=== PATIENT | male | born 1940 | race Caucasian/White ===

== ENCOUNTER → 2016-07-09 | Outpatient (CLI) | payer OTHER ==
[~2016-07-09] MED LIST: ANTIVERT PO; B-COMPLEX1 TAB; BLOOD PRESSURE MED; DIAZEPAM PO; PHENERGAN25 MG PO; VITAMIN C500 MG; WATER PILL
--- NOTE | ~2016-07-09 | US84 ---
[id number] [facility] [address]. [place], [place] [address] [id number] O MR#: [id number] Acc #: [id number] NAME: ANGEL CULP : 1940 SEX: M STUDY DATE/TIME: 07/09/2016 13:02 UNIT: [facility] ROOM: STUDY DESCRIPTION: US LE Veins Complete Guilherme Stdy Attending Physician: Justin Calvillo M.D. Referring Physician: Justin Calvillo M.D. Ordering Physician: Justin Calvillo M.D. Primary Care Physician: Justin Calvillo M.D. MEDICAL IMAGING REPORT This report is preliminary unless electronic signature is present EXAM Bilateral lower extremity venous duplex ultrasound 07/09/2016 HISTORY 75-year-old male with bilateral lower extremity swelling for 2 years. COMPARISON None. FINDINGS Real-time valencia-scale, color Doppler, and spectral Doppler analysis of the bilateral lower extremity deep venous systems demonstrates normal venous waveforms with normal compressibility and augmentation throughout. No evidence of bilateral lower extremity deep venous thrombosis. IMPRESSION Negative for bilateral lower extremity DVT. Dictated by... Iker Solo M.D. THIS IS AN ELECTRONICALLY VERIFIED REPORT Iker Solo M.D. at 07/09/2016 4:26 PM SAROJ/rip TD: 07/09/2016 16:18 JOB #: [id number] MEDICAL IMAGING REPORT Page 1 of 1 COPY
== END | disposition home or self-care (01) ==
LOC: CNIV 12:30
DX: R60.0 Localized edema (principal)
CPT/HCPCS: 93970